=== PATIENT | female | born 1960 | race Caucasian/White ===

== ENCOUNTER → 2017-05-25 | Day surgery (SDC) | payer OTHER ==
[~2017-05-25] MED LIST: ATOR40TA49 PO; CANA300T PO; EXEN10PE SQ; FISH1000 PO; LACTATED RINGER'S 1000 ML INJ 1,000 ML ONE; NEXI20CA PO; PRED50 PO; PROPOFOL 200 MG/20 ML AMP IV ONE
--- NOTE | 2017-05-25 12:30 | GIPROC ---
[facility] [address] [facility], [address] COLONOSCOPY PROCEDURE REPORT EXAM DATE: 05/25/2017 PATIENT NAME: Sara Casper MR #: [id number] BIRTHDATE: 1960 ENDOSCOPIST: Carolyn Noel MD ORDER #: [id number] [employer] SALESPERSON: STATUS: outpatient INDICATIONS: The patient is a 56 yr old female here for a colonoscopy due to high risk patient with personal history of colonic polyps PROCEDURE PERFORMED: Colonoscopy, screening MEDICATIONS: None and Per Anesthesia. PREP QUALITY: good ESTIMATED BLOOD LOSS: None CONSENT: The patient understands the risks and benefits of the procedure and understands that these risks include, but are not limited to: sedation, allergic reaction, infection, perforation and/or bleeding. Alternative means of evaluation and treatment include, among others: physical exam, x-rays, and/or surgical intervention. The patient elects to proceed with this endoscopic procedure. medical equipment was checked for proper function. Hand hygiene and appropriate measures for infection prevention was taken. After the risks, benefits and alternatives of the procedure were thoroughly explained, Informed consent was verified, confirmed and timeout was successfully executed by the treatment team. A digital exam revealed hemorrhoids The EC-[id number] ([id number]) and EC-[id number] ([id number]) endoscope was introduced through the anus and advanced to the cecum, which was identified by both the appendix and ileocecal valve. The instrument was then slowly withdrawn as the colon was fully examined. COLON FINDINGS: The colonic mucosa appeared normal. Retroflexed views revealed internal hemorrhoids and Retroflexed views revealed small internal hemorrhoids The scope was then completely withdrawn from the patient and the procedure terminated. PROCEDURE WITHDRAWAL TIME:6minutes ADVERSE EVENTS: There were no complications. IMPRESSIONS: 1. The colonic mucosa appeared normal 2. Retroflexed views revealed internal hemorrhoids 3. Retroflexed views revealed small internal hemorrhoids 4. Revealed hemorrhoids RECOMMENDATIONS: 1. Benefiber 2 tsp daily 2. Probiotics from any [facility] or health food store 3. High fiber diet RECALL: Return 5 years Colonoscopy Carolyn Noel MD eSigned: Carolyn Noel MD 05/25/2017 12:30 PM cc: Kev Womack [facility] Mirela and Carl Medina M.D.
== END | disposition home or self-care (01) ==
LOC: ESDC 09:54
PROVIDERS: ATTEND Internal Medicine Gastroenterology
DX: Z12.11 Encounter for screening for malignant neoplasm of colon (principal); Z86.010 Personal history of colon polyps; K64.8 Other hemorrhoids
CPT/HCPCS: 00810; 45378; J7120